=== PATIENT | male | born 1980 | race African-American/Black ===

== ENCOUNTER → 2017-11-05 | Outpatient (CLI) | payer OTHER ==
[~2017-11-05] MED LIST: LIDOCAINE 1% INJ-PF (10 MG/ML) 30 ML SDV ONE
[2017-11-05 09:11] LABS: FREE T4 (FREE THYROXINE) 1.02 ng/dL (0.78-2.19)
[2017-11-05 09:25] LABS: THYROID STIMULATING HORMONE 2.49 uIU/mL (0.47-4.68)
--- NOTE | 2017-11-05 11:53 | RADIOLOGY REPORT (SQ) ---
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 TECHNIQUE: The procedure was discussed with the patient and written informed consent obtained. A ti meout was performed to confirm the procedure and patient's identity. The skin of the neck was preppe d and draped in sterile fashion and 2 mL of 1% lidocaineadministered for local anesthesia. Under son ographic guidance, fine needle aspiration biopsy was performed of the mass in the left lower lobe of the thyroid. Four separate aspirations were performed. Hemostasis was obtained with direct manual compression. T here were no immediate complications. Pathology is pending The thyroid nodule of concern is in the deep aspect lower pole left lobe thyroid, 1.5 x 1 x 0.8 cm in size. This has low level internal echoes and good acoustic through transmission. Minimal if any in ternal color flow. LIMITATIONS: None. FINDINGS: PATHOLOGY: Pending. IMPRESSION: ULTRASOUND-GUIDED BIOPSY PERFORMED OF A MASS IN THE LEFT LOBE OF THE THYROID. PATHOLOGY PENDING AT THE TIME OF DICTATION. COMMENT: Patient medication list reviewed: Yes- Quality ID# [id number]:Eligible professional attests to doc umenting in the medical record they obtained, updated, or reviewed the patient's current medications. TECHNICAL DOCUMENTATION: JOB ID: [id number] [employer]- All Rights Reserved
== END ==
LOC: EDSTATUS 10-29 → RAD 09:03
PROVIDERS: ATTEND Physician Assistant
DX: E04.1 Nontoxic single thyroid nodule (principal)
CPT/HCPCS: 36415; 84439; 84443; 88173 ×2; 60100; J3490

== ENCOUNTER → 2018-10-23 | Outpatient (CLI) | payer OTHER ==
[2018-10-23 16:45] LABS: ALANINE AMINOTRANSFERASE 38 U/L (21-72); ASPARTATE AMINO TRANSFERASE 25 U/L (17-59)
== END ==
LOC: OD 15:10
PROVIDERS: ATTEND Preventive Medicine Undersea and Hyperbaric Medicine
DX: B35.1 Tinea unguium (principal)
CPT/HCPCS: 36415; 84450; 84460